=== PATIENT | male | born 1975 | race American Indian/Alaskan Native ===

== ENCOUNTER 2019-05-16 15:58 | Emergency (ER) | payer SELFPAY ==
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
--- NOTE | 2019-05-16 17:15 | XRay Report ---
CHEST 2 VIEWS INDICATION / CLINICAL INFORMATION: Chest pain. COMPARISON: None available. FINDINGS: SUPPORT DEVICES: None. HEART / MEDIASTINUM: The heart size and pulmonary vasculature are normal. The aorta is normal in devora benjamin. LUNGS / PLEURA: No significant pulmonary or pleural abnormality. No pneumothorax. ADDITIONAL FINDINGS: No significant additional findings. IMPRESSION: No acute findings. Signer Name: Jose Harry MD Signed: 05/16/2019 5:10 PM Workstation Name: [id number]
--- NOTE | 2019-05-16 17:18 | XRay Report ---
CERVICAL SPINE 3 VIEWS INDICATION / CLINICAL INFORMATION: Neck pain. COMPARISON: None available. FINDINGS: BONES / JOINT(S): There is mild degenerative disc disease at C5-6. There is no evidence of fracture, subluxation or destructive lesion. SOFT TISSUES: The prevertebral soft tissues are normal. ADDITIONAL FINDINGS: The lung apices are clear. IMPRESSION: Mild degenerative disc disease at C5-6 without acute abnormality. Signer Name: Jose Harry MD Signed: 05/16/2019 5:14 PM Workstation Name: [id number]
[2019-05-16 17:43] VITALS: BP 126/71
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
== END 2019-05-16 18:25 | disposition home or self-care (01) ==
LOC: ED 15:58
DX: S16.1XXA Strain of muscle, fascia and tendon at neck level, initial encounter (principal); Y04.2XXA Assault by strike against or bumped into by another person, initial encounter; Y93.89 Activity, other specified; Y92.89 Other specified places as the place of occurrence of the external cause; Y99.8 Other external cause status
CPT/HCPCS: 71046; 72040; 99283